=== PATIENT | male | born 1995 | race African-American/Black ===

== ENCOUNTER 2020-09-14 03:10 | Observation (INO) | payer OTHER ==
[2020-09-14] MEDS ORDERED: ACETAMINOPHEN 1000 MG/100 ML VIAL (NON FORMULARY) IVPB ONE (04:06)
[2020-09-14] MEDS ORDERED: SODIUM CHLORIDE 0.9% 500 ML INFUS.BAG IV ONE (04:07)
[2020-09-14] MEDS ORDERED: METOPROLOL TARTRATE 5 MG/5 ML VIAL IVPUSH ONE (04:11)
[2020-09-14] MEDS ORDERED: ACETAMINOPHEN INJECTION 100 ML IVPB ONE (04:11)
[2020-09-14 04:26] LABS: BASO % 0.4 % (0-2.0); EOS % 1.1 % (0-4.5); HEMOGLOBIN 14.9 GM/dL (11.7-16.9); LYMPH % 37.9 % (8-40); MCHC 33.1 g/dl (32.0-35.9); MEAN CELL VOLUME 90.8 fl (80-96); MEAN PLT VOLUME 9.1 fl (7.5-11.1); MONO % 8.2 % (3.8-10.2); NEUT % 52.4 % (42.8-82.8); RBC 4.95 M/mm3 (4.00-5.60); RDW 12.4 % (11.9-15.9)
[2020-09-14 04:28] LABS: PLATELET COUNT 31 K/MM3 (134-434)
[2020-09-14] MEDS ORDERED: METOPROLOL TARTRATE 25 MG TABLET (FP) PO ONE (05:20)
[2020-09-14] MEDS ORDERED: METOPROLOL TARTRATE 25 MG TABLET (FP) ONE (05:51)
[2020-09-14 06:10] LABS: POTASSIUM 3.6 mmol/L (3.5-5.1)
[2020-09-14 06:12] LABS: CALCIUM 8.5 mg/dL (8.5-10.1)
[2020-09-14 06:13] LABS: ALBUMIN 4.4 g/dl (3.4-5.0); BLOOD UREA NITROGEN 15.7 mg/dL (7-18)
[2020-09-14 06:16] LABS: CREATININE 1.1 mg/dL (0.55-1.3)
[2020-09-14 06:17] LABS: BILIRUBIN,TOTAL 0.3 mg/dL (0.2-1)
[2020-09-14 06:18] LABS: TOT PROT 8.2 g/dl (6.4-8.2)
[2020-09-14 13:29] LABS: BASO % 0.5 % (0-2.0); EOS % 0.1 % (0-4.5); LYMPH % 25.9 % (8-40); MCH 29.5 pg (25.7-33.7); MCHC 32.6 g/dl (32.0-35.9); MEAN CELL VOLUME 90.7 fl (80-96); MEAN PLT VOLUME 8.9 fl (7.5-11.1); MONO % 8.4 % (3.8-10.2); NEUT % 65.1 % (42.8-82.8); PLATELET COUNT 205 K/MM3 (134-434); RBC 5.07 M/mm3 (4.00-5.60); RDW 12.4 % (11.9-15.9); WHITE BLOOD COUNT 7.8 K/mm3 (4.0-10.0)
[2020-09-14 14:45] LABS: COCAINE, UR NEGATIVE ng/ml (CUTOFF=300); METHADONE, UR NEGATIVE ng/ml (CUTOFF=300); OPIATES, URI NEGATIVE ng/ml (CUTOFF=300); PHENCYCLIDINE,URINE NEGATIVE ng/ml (CUTOFF=25); URINE AMPHETAMINES NEGATIVE ng/ml (CUTOFF=500); URINE BARBITURATES NEGATIVE ng/ml (CUTOFF=200); URINE BENZODIAZEPINES NEGATIVE ng/ml (CUTOFF=200)
[2020-09-15 00:16] VITALS: BMI 29.2
[2020-09-15 07:03] LABS: INR 1.15 (0.83-1.09); PROTHROMBIN TIME (PATIENT) 14.1 SEC (9.7-13.0)
[2020-09-15 07:06] LABS: ACTIVATED PTT 24.2 SECONDS (25.2-36.5); BASO % 0.3 % (0-2.0); HEMATOCRIT 46.6 % (35.4-49); HEMOGLOBIN 15.3 GM/dL (11.7-16.9); MCH 29.7 pg (25.7-33.7); MCHC 32.8 g/dl (32.0-35.9); MEAN CELL VOLUME 90.5 fl (80-96); MONO % 9.8 % (3.8-10.2); NEUT % 49.9 % (42.8-82.8); PLATELET COUNT 152 K/MM3 (134-434); RBC 5.16 M/mm3 (4.00-5.60); RDW 12.3 % (11.9-15.9); WHITE BLOOD COUNT 8.1 K/mm3 (4.0-10.0)
[2020-09-15 07:11] LABS: POTASSIUM 4.2 mmol/L (3.5-5.1)
[2020-09-15 07:13] LABS: CALCIUM 9.4 mg/dL (8.5-10.1)
[2020-09-15 07:14] LABS: BLOOD UREA NITROGEN 12.7 mg/dL (7-18)
[2020-09-15 07:16] LABS: ALBUMIN 4.2 g/dl (3.4-5.0)
[2020-09-15 07:18] LABS: BILIRUBIN,TOTAL 0.6 mg/dL (0.2-1); TOT PROT 8.5 g/dl (6.4-8.2)
[2020-09-15 13:33] VITALS: BP 148/94; PULSE 68; TEMP 98.4
== END 2020-09-15 14:19 | disposition home or self-care (01) ==
LOC: JER 03:10 → INTOOBSV 07:46 → JERBED 07:46 → J7W 23:33
PROVIDERS: ADMIT Internal Medicine; ATTEND Internal Medicine
PROC: 3E033NZ Introduction of Analgesics, Hypnotics, Sedatives into Peripheral Vein, Percutaneous Approach (ICD-10-PCS; principal; 2020-09-14)
PROC: 3E033GC Introduction of Other Therapeutic Substance into Peripheral Vein, Percutaneous Approach (ICD-10-PCS; 2020-09-14)
PROC: 3E0337Z Introduction of Electrolytic and Water Balance Substance into Peripheral Vein, Percutaneous Approach (ICD-10-PCS; 2020-09-14)
DX: F39 Unspecified mood [affective] disorder (principal); F41.8 Other specified anxiety disorders; I10 Essential (primary) hypertension; Z88.8 Allergy status to other drugs, medicaments and biological substances
CPT/HCPCS: 36415; 71046-TC-FY; 80048; 80053; 80307; 84439; 84443; 85025; 85610; 85730; 93005; 93010; 99285-25; C9803; G0378; J0131; U0003